=== PATIENT | male | born 1950 | race Caucasian/White ===

== ENCOUNTER 2018-06-22 12:13 | Inpatient (IN) | payer OTHER, MEDICARE ==
--- OUTSIDE RECORDS SUMMARY | 2018-06-22 12:16 | XMS REPORT | Clinical Summary ---
:1950 Author Organization [facility] Address [address] [place] [address] Care Team Providers Name Role Phone Asked, No Pcp Primary Care Provider Unavailable Allergies Active Allergy Reactions Severity Noted Date Comments Ibuprofen Anaphylaxis High 01/18/2018 Current Medications Prescription Sig. Disp. Refills Start Date End Date Status allopurinol (ZYLOPRIM) Take 300 mg by Active 300 MG tablet mouth daily. amLODIPine (NORVASC) 5 mg Take 5 mg by Active tablet mouth daily. glimepiride (AMARYL) 4 MG Take 4 mg by Active tablet mouth 2 (two) times a day. hydroCHLOROthiazide Take 25 mg by Active (HYDRODIURIL) 25 MG mouth daily. tablet losartan (COZAAR) 100 MG Take 100 mg by Active tablet mouth daily. metFORMIN (GLUCOPHAGE) Take 1,000 mg Active 1,000 mg tablet by mouth 2 (two) times a day with meals. metoprolol tartrate Take 100 mg by Active (LOPRESSOR) 100 mg tablet mouth 2 (two) times a day. rivaroxaban (XARELTO) 20 Take 20 mg by Active mg tablet mouth daily. meloxicam (MOBIC) 15 mg Take 15 mg by Active tablet mouth daily. Prn only traMADol (ULTRAM) 50 mg Take 50 mg by Active tablet mouth every 6 (six) hours as needed for moderate pain. omega-3/dha/epa/fish oil Take 4 Active (FISH OIL HIGH POTENCY capsules by ORAL) mouth daily. cholecalciferol, vitamin Take 5,000 Active D3, (VITAMIN D3) 1,000 Units by mouth unit tablet daily. rosuvastatin (CRESTOR) 10 Take 10 mg by Active MG tablet mouth daily. clopidogrel (PLAVIX) 75 Take 75 mg by Active mg tablet mouth daily. metoprolol succinate XL Take 100 mg by Discontinued (TOPROL-XL) 100 mg 24 hr mouth 2 (two) 8 tablet times a day. Active Problems Problem Noted Date Abnormal cardiovascular stress test 01/18/2018 Encounters Date Type Specialty Care Team Description 01/18/2018 - Hospital Encounter Cardiology Christiano, Abnormal cardiovascular stress test; 01/19/2018 Maria Dolores Coronary artery disease, angina presence unspecified, unspecified vessel or lesion type, unspecified whether cocopah or transplanted heart MD Sabas 01/18/2018 Procedure Pass Procedural Cardiology 01/18/2018 Surgery Procedural Duchman, Cv left heart cath w lv Cardiology Maria Dolores gram cors [[id number] MD Sabas (CPT)] 12/21/2017 Hospital Encounter Procedural Duchman, Abnormal nuclear stress test; Cardiology Maria Dolores Nonspecific abnormal electrocardiogram (ECG) (EKG); MD Sabas Palpitations 12/19/2017 Transcribe Orders Procedural Duchman, Abnormal nuclear stress test (Primary Dx); Cardiology Maria Dolores Nonspecific abnormal electrocardiogram (ECG) (EKG); MD Sabas Palpitations after 06/21/2017 Social History Tobacco Use Types Packs/Day Years Used Date Former Smoker Smokeless Tobacco: Never Used Alcohol Use Drinks/Week oz/Week Comments Yes Sex Assigned at Date Recorded Not on file Last Filed Vital Signs Vital Sign Reading Time Taken Blood Pressure 157/87 01/19/2018 7:49 AM CDT Pulse 78 01/19/2018 7:49 AM CDT Temperature 36.6 C (97.8 F) 01/19/2018 7:49 AM CDT Respiratory Rate 20 01/19/2018 7:49 AM CDT Oxygen Saturation 97% 01/19/2018 7:49 AM CDT Inhaled Oxygen Concentration - - Weight 134 kg (296 lb 8 oz) 01/18/2018 12:06 PM CDT Height 185.4 cm (6' 1") 01/18/2018 12:06 PM CDT Body Mass Index 39.12 01/18/2018 12:06 PM CDT Plan of Treatment Health Maintenance Due Date Last Done Comments COLON CANCER SCREENING 1998 SHINGRIX VACCINE (#1) 1998 ZOSTER VACCINE 2008 PNEUMOCOCCAL POLYSACCHARIDE VACCINE AGE 65 AND OVER 2013 PNEUMOCOCCAL-13 2013 INFLUENZA VACCINE 03/20/2018 Implants Implanted Type Area Upholstery Cleaner Device Expiration Model / Identifier Date Serial / Lot Stent Catheter Synergy (Otw) 3.00mm X 38mm - [id number] Coronary N/A: [facility] [id number] / Implanted: 01/18/2018 (Quantity not on file) Stents N/A INTERVENTIONAL / CARDIOLOGY Stent Catheter Synergy (Otw) 2.75mm X 16mm - [id number] Coronary N/A: [facility] [id number] / Implanted: 01/18/2018 (Quantity not on file) Stents N/A INTERVENTIONAL / CARDIOLOGY Stent Catheter Synergy (Otw) 3.00mm X 24mm - [id number] Coronary N/A: [facility] [id number] / Implanted: 01/18/2018 (Quantity not on file) Stents N/A INTERVENTIONAL / CARDIOLOGY System Clsr Sut Meditd 6fr Perclose Proglide - [id number] Surgical N/A: CABRAL VASCULAR 10/18/2019 [id number] / Implanted: 01/18/2018 (Quantity not on file) Implants; N/A DEVICES / Expanders; [id number] Extenders; Surgical Wires Explanted Type Area Upholstery Cleaner Device Expiration Model / Identifier Date Serial / Lot Stent Catheter Synergy (Otw) 3.00mm X 32mm - [id number] Coronary N/A: N/A [facility] [id number] / Explanted: 01/18/2018 (Quantity not on file) Stents INTERVENTIONAL / CARDIOLOGY Procedures Procedure Name Priority Date/Time Associated Diagnosis Comments POC GLUCOSE Routine 01/19/2018 7:46 Results for this AM CDT procedure are in the results section. ECG PRE/POST OP Routine 01/19/2018 6:47 Results for this AM CDT procedure are in the results section. ZZESTIMATED GFR Routine 01/19/2018 5:00 Results for this AM CDT procedure are in the results section. LIPID PANEL Routine 01/19/2018 5:00 Results for this AM CDT procedure are in the results section. HC COMPLETE BLD Routine 01/19/2018 5:00 Results for this COUNT W/AUTO DIFF AM CDT procedure are in the results section. BASIC METABOLIC Routine 01/19/2018 5:00 Results for this PANEL AM CDT procedure are in the results section. POC GLUCOSE Routine 01/18/2018 11:43 Results for this PM CDT procedure are in the results section. POC GLUCOSE Routine 01/18/2018 6:37 Results for this PM CDT procedure are in the results section. ECG 12-LEAD STAT 01/18/2018 4:58 Results for this PM CDT procedure are in the results section. POC GLUCOSE Routine 01/18/2018 4:34 Results for this PM CDT procedure are in the results section. CV PCI PERCUTANEOUS Routine 01/18/2018 4:03 Abnormal cardiovascular Results for this CARDIAC ANGIOPLASTY PM CDT stress test procedure are in Coronary artery disease, the results angina presence section. unspecified, unspecified vessel or lesion type, unspecified whether cocopah or transplanted heart CV LEFT HEART CATH Routine 01/18/2018 4:03 Abnormal cardiovascular Results for this LV GRAM WITH CORS PM CDT stress test procedure are in Coronary artery disease, the results angina presence section. unspecified, unspecified vessel or lesion type, unspecified whether cocopah or transplanted heart ACTIVATED CLOTTING Routine 01/18/2018 2:14 Results for this TIME PM CDT procedure are in the results section. POC GLUCOSE Routine 01/18/2018 1:31 Results for this PM CDT procedure are in the results section. POC GLUCOSE Routine 01/18/2018 12:14 Results for this PM CDT procedure are in the results section. ECG 12-LEAD STAT 01/18/2018 12:01 Results for this PM CDT procedure are in the results section. CTA CORONARY Routine 12/21/2017 9:54 Abnormal nuclear stress Results for this ARTERIES W CONTRAST AM CDT test procedure are in Nonspecific abnormal the results electrocardiogram (ECG) section. (EKG) Palpitations after 06/21/2017 Results POC glucose (01/19/2018 7:46 AM)Only the most recent of6 resultswithin the time period is included. POC glucose 335 (H) 65 - 99 mg/dL [facility] DEPARTMENT OF PATHOLOGY AND Comment: GENOMIC MEDICINE [facility] Notified RN Meter ID: [id number] Mission Support Specialist: Johnson Nova Performing Organization Address City/State/Zipcode Phone Number [facility] DEPARTMENT OF PATHOLOGY AND [address] [place] [address] [employer] MEDIC[facility] ECG Pre/Post Op (in AM) (01/19/2018 6:47 AM) Ventricular rate 81 [facility] Atrial rate 357 [facility] QRSD interval 100 [facility] QT interval 346 [facility] QTC interval 401 [facility] QRS axis 1 12 [facility] T wave axis 63 [facility] EKG impression Atrial fibrillation-Cannot rule out Anterior infarct , age undetermined-Abnormal ECG-In automated comparison with ECG of 18-JAN-2018 16:58, -T wave inversion now evident in Anterolateral leads- [facility] 10:14:54 PM Performing Organization Address City/[facility] Phone Number [facility] [address] [place] [address] Estimated GFR (01/19/2018 5:00 AM) GFR Non Af Amer 74 mL/min/1.73 m2 [facility] DEPARTMENT OF PATHOLOGY AND GENOMIC MEDICINE GFR Af Amer 90 mL/min/1.73 m2 [facility] DEPARTMENT OF Comment: PATHOLOGY AND GENOMIC Chronic kidney disease: <60 mL/min/1.73m2 MEDICINE Kidney failure: <15 mL/min/1.73m2 The estimated GFR is calculated from the IDMS-traceable Modification of Diet in Renal Disease Equation. The accuracy of the calculation is poor when the creatinine is normal. Calculated values >90 mL/min/1.73m2 are not reported. This equation has not been validated in children (<18 years), women, the elderly (>70 years), or ethnic groups other than Caucasians and Americans. Specimen Plasma specimen Performing Organization Address City/[facility] Phone Number [facility] DEPARTMENT OF PATHOLOGY AND [address] [place] [address] [employer] [facility] CBC with platelet and differential (01/19/2018 5:00 AM) WBC 13.16 (H) 4.50 - 11.00 k/uL [facility] DEPARTMENT OF PATHOLOGY AND GENOMIC MEDICINE RBC 4.71 4.40 - 6.00 m/uL [facility] DE[facility] OF PATHOLOGY AND GENOMIC MEDICINE HGB 14.8 14.0 - 18.0 g/dL [facility] DEPARTMENT OF PATHOLOGY AND GENOMIC MEDICINE HCT 41.9 41.0 - 51.0 % [facility] OF PATHOLOGY AND GENOMIC MEDICINE MCV 89.0 82.0 - 100.0 fL [facility] DEPARTMENT OF PATHOLOGY AND GENOMIC MEDICINE MCH 31.4 27.0 - 34.0 pg [facility] DEPARTMENT OF PATHOLOGY AND GENOMIC MEDICINE MCHC 35.3 31.0 - 37.0 g/dL [facility] DEPARTMENT OF PATHOLOGY AND GENOMIC MEDICINE RDW - SD 43.1 37.0 - 55.0 fL [facility] DEPART[facility] OF PATHOLOGY AND GENOMIC MEDICINE MPV 11.0 8.8 - 13.2 fL [facility] OF PATHOLOGY AND GENOMIC MEDICINE Platelet count 151 150 - 400 k/uL [facility] DEPARTMENT OF PATHOLOGY AND GENOMIC MEDICINE Nucleated RBC 0.00 /100 WBC [facility] DEPARTMENT OF PATHOLOGY AND GENOMIC MEDICINE Neutrophils 71.6 (H) 39.0 - 69.0 % [facility] DEPARTMENT OF PATHOLOGY AND GENOMIC MEDICINE Lymphocytes 20.0 (L) 25.0 - 45.0 % [facility] DEPARTMENT OF PATHOLOGY AND GENOMIC MEDICINE Monocytes 6.3 0.0 - 10.0 % [facility] DEPARTMENT OF PATHOLOGY AND GENOMIC MEDICINE Eosinophils 0.9 0.0 - 5.0 % [facility] DEPARTMENT OF PATHOLOGY AND GENOMIC MEDICINE Basophils 0.7 0.0 - 1.0 % [facility] DEPARTMENT OF PATHOLOGY AND GENOMIC MEDICINE Immature granulocytes 0.5Comment: 0.0 - 1.0 % [facility] DEPARTMENT OF "Immature PATHOLOGY AND GENOMIC granulocytes" MEDICINE (promyelocytes, myelocytes, metamyelocytes) Specimen Blood Performing Organization Address City/State/Zipcode Phone Number [facility] DEPARTMENT OF PATHOLOGY AND [address] [place] [phone] GENOMIC MEDICINE Lipid panel (01/19/2018 5:00 AM) Cholesterol 72 <200 mg/dL [facility] DEPARTMENT OF PATHOLOGY AND GENOMIC MEDICINE Triglycerides 135 <150 mg/dL [facility] DEPARTMENT OF PATHOLOGY AND GENOMIC MEDICINE HDL cholesterol 29 (L) >40 mg/dL [facility] DEPARTMENT OF PATHOLOGY AND GENOMIC MEDICINE LDL cholesterol 22Comment: Result <100 mg/dL [facility] DEPART[facility] obtained by direct LDL PATHOLOGY AND GENOMIC measurement MEDICINE Lipid panel interpretation SeeBelow [facility] DEPARTMENT OF Comment: PATHOLOGY AND GENOMIC Total Cholesterol (mg/dL) MEDICINE <200 Desirable 869-672Swgwtioebx-orvg >=240High Triglycerides (mg/dL) <150 Normal 500-488Fljrqpacrq-gyxu 200-499High >=500Very high HDL Cholesterol (mg/dL) <40Low (male) <40Low (female) LDL Cholesterol (mg/dL) <100 Optimal 100-129Near or above optimal 672-179Ltxifnqzxl-mspz 160-189High >=190Very high Risk Catergories that modify LDL goals. Risk CatergoriesLDL goal (mg/dL) CHD and CHD risk equivalent<100 (10-year risk >20%) Multiple (2+) risk factors <130 (10-year risk=<20%) 0-1 risk factors <160 (<10-year risk) Defining levels of lipids in metabolic syndrome Triglycerides>=150 mg/dL HDL Cholesterol Men<40 mg/dL Women<40 mg/dL Non-HDL cholesterol is a second target for therapy in persons with high triglycerides (>=200 mg/dL) Specimen Plasma specimen Performing Organization Address City/[facility] Phone Number [facility] DEPARTMENT OF PATHOLOGY AND [address] [place] [address] Basic metabolic panel (01/19/2018 5:00 AM) Sodium 138 135 - 148 mEq/L [facility] DEPARTMENT OF PATHOLOGY AND GENOMIC MEDICINE Potassium 3.3 (L) 3.5 - 5.0 mEq/L [facility] DEPARTMENT OF PATHOLOGY AND GENOMIC MEDICINE Chloride 95 (L) 98 - 112 mEq/L [facility] DEPARTMENT OF PATHOLOGY AND GENOMIC MEDICINE CO2 26 24 - 31 mEq/L [facility] DEPARTMENT OF PATHOLOGY AND GENOMIC MEDICINE Anion gap 17@ANIO (H) 7 - 15 mEq/L [facility] DEPARTMENT OF PATHOLOGY AND GENOMIC MEDICINE BUN 21 8 - 23 mg/dL [facility] DEPARTMENT OF PATHOLOGY AND GENOMIC MEDICINE Creatinine 1.0 0.7 - 1.2 mg/dL [facility] DEPARTMENT OF PATHOLOGY AND GENOMIC MEDICINE Glucose 305 (H) 65 - 99 mg/dL [facility] DEPARTMENT OF PATHOLOGY AND GENOMIC MEDICINE Calcium 9.1 8.8 - 10.2 mg/dL [facility] DEPARTMENT OF PATHOLOGY AND GENOMIC MEDICINE Specimen Plasma specimen Performing Organization Address [facility] Phone Number [facility] DEPARTMENT OF PATHOLOGY AND [address] [place], [place] [phone] [facility] ECG 12 lead (01/18/2018 4:58 PM)Only the most recent of2 resultswithin the time period is included. Ventricular rate 60 [facility] Atrial rate 468 [facility] QRSD interval 102 [facility] QT interval 408 [facility] QTC interval 408 [facility] QRS axis 1 18 [facility] T wave axis 25 [facility] EKG impression Atrial fibrillation-ST elevation, consider early repolarization , pericarditis, or injury-Abnormal ECG-In automated comparison with ECG of Jan-2018 12:01,-ST elevation has replaced ST depression in An [facility] terior leads- Performing Organization Address [facility]/Zipcode Phone Number [facility] [address] [place] [address] Cv cath lab radiology technician procedure (01/18/2018 4:03 PM) Narrative Performed At PCI of mid LAD HIP HOP DANCER with overlapping 3.0 x 38mm, 3.0 x 24mm, 2.75 x 16 mm Vignani MARY stents (proximal to distal) Performing Organization Address [facility] Phone Number [facility] [address] [place] [id number] Activated clotting time (01/18/2018 2:14 PM) Activated clotting time 639 (H) 96 - 152 sec [facility] DEPARTMENT OF Comment: PATHOLOGY AND GENOMIC Meter ID: [id number] MEDICINE Mission Support Specialist: Maximus Saavedra Performing Organization Address [facility] Phone Number [facility] DEPARTMENT OF PATHOLOGY AND [address] [place] [address] GENOMIC MEDICINE Cv cta coronary arteries w contrast (12/21/2017 9:54 AM) Narrative Performed At [facility] Nuclear Cardiology and Cardiac CT [address] [place] [address] CTA Coronary Arteries Report Pat.Name:FAMILIA MATHEWS Pat.ID:[id number] .Date: 12/21/2017Refer.MD:MARIA DOLORES OBREGON MD Exam Time: 9:24:00 AMStudy Type:CTA Coronary Arteries Height:72inWeight: 292lb BSA: 2.5 s0QWEWcl:1950,67Y Sex: MALEBP:163/83 HR:70 bpm Nuclear Tech:Arpan Briceno, RT(NM)(CT), [facility] Pat. Stat.:Outpatient CPT - 4: CCTA w Thoracic Aorta (NonCongenital) [id number] Nuclear Event ID:[id number] Order ID:[id number] Reason for Study:Abnormal EKG*, Abnormal stress test Procedures:CTA Coronary Arteries SUMMARY: Technique: IV contrast was administered and sequential 0.[address] cuts were obtained through the chest using the Siemens Somatom Force CT scanner. Post-processing and 3D reconstruction were done using the [employer] workstation. Interactive image viewing and volumetric display and analysis were also performed. CTA RESULTS Left Main: A normal sized 4.5 artery which arises normally from the left sinus of Valsalva and divides into the left anterior descending and circumflex coronary arteries. No significant atherosclerotic plaque is present. Left anterior descending (LAD): A normal sized 4.0mm artery which wraps around the apex and gives off three diagonal branches. Severe predominantly calcified atherosclerotic plaque is present in the proximal and mid segments with subtotal vs. total occlusion atmid segment The first diagonal is a 1.0 mm artery which has mild calcified and non-calcified atherosclerotic plaque present but with no significant stenosis. The second diagonal is a 1.5 mm artery which has mild calcified and non-calcified atherosclerotic plaque present with mild (25-49%) stenosis. The third diagonal is a 1.5 mm artery which has mild calcified and non-calcified atherosclerotic plaque present with approximately 50% stenosis. Left circumflex: A normal sized 3.5 mm non-dominant artery which arises normally from the left main and gives off one major obtuse marginal artery before terminating in the AV groove. Moderate predominantly calcified atherosclerotic plaque is present in the proximal and mid segments with with mild (25-49%) stenosis in the proximal segment. The first obtuse marginal is a 2.0 mm artery which has mild calcified and non-calcified atherosclerotic plaque present but no significant stenosis. Right coronary artery: A normal sized 4.0 mm dominant artery which arises normally from the right sinus of Valsalva and gives off several right ventricular branches, the posterior descending artery and the posterolateral artery. Severe predominantly calcified atherosclerotic plaque is present in the proximal and mid segments with mild (25-49 %) stenosis in the proximal segment. The posterior descending is a 2.0 mm artery which has mild calcified atherosclerotic plaque present but no significant stenosis. The posterolateral is a 2.0 mm artery which has no significant atherosclerotic plaquepresent. Ramus: A very small mm artery which has mild calcified atherosclerotic plaque present but with no significant stenosis. Stents: None. Bypass Grafts: None. Pulmonary Arteries: Normal pulmonary artery sizes with no proximal thrombus identified. Left Atrial and Pulmonary Vein Dimensions: Left atrial size (A-P diameter) 5.1 cm. Normal PV anatomy There is no evidence of the left atrial appendage clot. Left Ventricular Valve Morphology/Function: Aortic valve is tri-leaflet. Thoracic Aortic Dimensions: No aortic aneurysm or dissection is seen. Aortic root3.7 cm. Sinotubular junction 3.1 cm. Mid ascending aorta 3.7 cm. Descending thoracic aorta 2.9 cm. Pericardium: No pericardial effusion or pericardial thickening. Non-Cardiac Findings: Small hiatal hernia. CONCLUSION CT coronary angiography shows moderate stenosis of the mid right cononary artery (50%),mid-LAD total to subtotal occlusion with collaterals from PDA and proximal LAD Normal PV anatomy. There is no evidence of the left atrial appendage clot. STUDY QUALITY The study quality is good. COMMENTS None. The above report was based on a dedicated Cardiovascular CTA Protocol and interpreted by a Grinder Set Up Operator External.Should a more comprehensive assessment of non-cardiovascular findings be desired, please consult a radiologist.These images are available in the [facility] [employer] PACS system. Signed 12/24/2017 08:28 AM Michaela Houser MD Procedure Note Interface, Radiology Results In - 12/24/2017 8:29 AM CDT Nuclear Cardiology and Cardiac CT [address] [place] [address] CTA Coronary Arteries Report Pat.Name: FAMILIA MATHEWS Pat.ID: [id number] .Date: 12/21/2017 Refer.MD: MARIA DOLORES OBREGON MD Exam Time: 9:24:00 AM Study Type:CTA Coronary Arteries Height: 72in Weight: 292lb BSA: 2.5 m2 Age: 1 1950,67Y Sex: MALE BP: 163/83 HR: 70 bpm Nuclear Tech:Arpan Briceno RT(NM)(CT), [facility] Pat. Stat.:Outpatient CPT - 4: CCTA w Thoracic Aorta (NonCongenital) [id number] Nuclear Event ID:[id number] Order ID: [id number] Reason for Study:Abnormal EKG*, Abnormal stress test Procedures:CTA Coronary Arteries SUMMARY: Technique: IV contrast was administered and sequential 0.[address] cuts were obtained through the chest using the Siemens Somatom Force CT scanner. Post-processing and 3D reconstruction were done using the [employer] workstation. Interactive image viewing and volumetric display and analysis were also performed. CTA RESULTS Left Main: A normal sized 4.5 artery which arises normally from the left sinus of Valsalva and divides into the left anterior descending and circumflex coronary arteries. No significant atherosclerotic plaque is present. Left anterior descending (LAD): A normal sized 4.0mm artery which wraps around the apex and gives off three diagonal branches. Severe predominantly calcified atherosclerotic plaque is present in the proximal and mid segments with subtotal vs. total occlusion at mid segment The first diagonal is a 1.0 mm artery which has mild calcified and non-calcified atherosclerotic plaque present but with no significant stenosis. The second diagonal is a 1.5 mm artery which has mild calcified and non-calcified atherosclerotic plaque present with mild (25-49%) stenosis. The third diagonal is a 1.5 mm artery which has mild calcified and non-calcified atherosclerotic plaque present with approximately 50% stenosis. Left circumflex: A normal sized 3.5 mm non-dominant artery which arises normally from the left main and gives off one major obtuse marginal artery before terminating in the AV groove. Moderate predominantly calcified atherosclerotic plaque is present in the proximal and mid segments with with mild (25-49%) stenosis in the proximal segment. The first obtuse marginal is a 2.0 mm artery which has mild calcified and non-calcified atherosclerotic plaque present but no significant stenosis. Right coronary artery: A normal sized 4.0 mm dominant artery which arises normally from the right sinus of Valsalva and gives off several right ventricular branches, the posterior descending artery and the posterolateral artery. Severe predominantly calcified atherosclerotic plaque is present in the proximal and mid segments with mild (25-49 %) stenosis in the proximal segment. The posterior descending is a 2.0 mm artery which has mild calcified atherosclerotic plaque present but no significant stenosis. The posterolateral is a 2.0 mm artery which has no significant atherosclerotic plaque present. Ramus: A very small mm artery which has mild calcified atherosclerotic plaque present but with no significant stenosis. Stents: None. Bypass Grafts: None. Pulmonary Arteries: Normal pulmonary artery sizes with no proximal thrombus identified. Left Atrial and Pulmonary Vein Dimensions: Left atrial size (A-P diameter) 5.1 cm. Normal PV anatomy There is no evidence of the left atrial appendage clot. Left Ventricular Valve Morphology/Function: Aortic valve is tri-leaflet. Thoracic Aortic Dimensions: No aortic aneurysm or dissection is seen. Aortic root 3.7 cm. Sinotubular junction 3.1 cm. Mid ascending aorta 3.7 cm. Descending thoracic aorta 2.9 cm. Pericardium: No pericardial effusion or pericardial thickening. Non-Cardiac Findings: Small hiatal hernia. CONCLUSION CT coronary angiography shows moderate stenosis of the mid right cononary artery (50%), mid-LAD total to subtotal occlusion with collaterals from PDA and proximal LAD Normal PV anatomy. There is no evidence of the left atrial appendage clot. STUDY QUALITY The study quality is good. COMMENTS None. The above report was based on a dedicated Cardiovascular CTA Protocol and interpreted by a Grinder Set Up Operator External. Should a more comprehensive assessment of non-cardiovascular findings be desired, please consult a radiologist. These images are available in the [facility] [employer] PACS system. Signed 12/24/2017 08:28 AM Michaela Houser MD Performing Organization Address City/State/Zipcode Phone Number [facility] [id number] [place] [address] after 06/21/2017 Insurance Payer Benefit Plan / Group Subscriber ID Type Phone Address MEDICARE MEDICARE PART A AND B xxxxxxxxxx Medicare [place], [place] AARP AARP SUPPLEMENT xxxxxxxxx-xx Commercial
[2018-06-22 13:29] LABS: Absolute Monocytes 0.8 K/uL (0.1-1.3); Absolute Neutrophil 10.3 K/uL (1.8-8.0); Basophils % 0.9 % (0-1.3); Eosinophils % 1.3 % (0-4.4); Lymphocytes % 20.6 % (15.3-44.8); MCH 30.8 pg (27.0-35.0); MCV 90.1 fL (80-100); Monocytes % 5.8 % (3.3-12.3); RBC Red Blood Cell Count 5.22 M/uL (4.33-5.43)
[2018-06-22] MEDS ORDERED: ACETAMINOPHEN 500 MG TAB PO PRN (13:42)
[2018-06-22] MEDS ORDERED: ONDANSETRON 4 MG/2 ML VIAL IV PRN (13:42)
[2018-06-22] MEDS ORDERED: MORPHINE 4 MG/ML SYR IV PRN (13:42)
--- NOTE | 2018-06-22 13:54 | ER ---
Nurse's Notes [facility] Name: Familia Taylor Age: 67 yrs Sex: Male : 1950 Arrival Date: 06/22/2018 Time: 12:15 Bed 15 Private MD: Alex Sullivan Diagnosis: Cellulitis of right toe;Diabetes mellitus due to underlying condition;Left great toe fracture: open Presentation: 06/22 12:20 Presenting complaint: Patient states: I have a wound to my left great toe that I la1 noticed for the first time today because it was bleeding. Transition of care: patient was not received from another setting of care. Onset of symptoms was June 22, 2018. Risk Assessment: Do you want to hurt yourself or someone else? Patient reports no desire to harm self or others. Initial Sepsis Screen: Does the patient meet any 2 criteria? No. Patient's initial sepsis screen is negative. Does the patient have a suspected source of infection? No. Patient's initial sepsis screen is negative. Care prior to arrival: None. 12:20 Method Of Arrival: Ambulatory la1 12:20 Acuity: CELESTINA 3 la1 Triage Assessment: 12:30 Bite description: bite sustained to left first toe is unknown, possible black was rb1 sustained 12-24 hours ago. by unknown, animal information: vaccination(s) is not applicable. Historical: - Allergies: 12:19 Ibuprofen; la1 - PMHx: 12:19 Diabetes - NIDDM; Hypertension; Gout; High Cholesterol; la1 - PSHx: 12:19 Heart stents; la1 - Immunization history:: Adult Immunizations up to date. - Social history:: Smoking status: Patient/guardian denies using tobacco. - Ebola Screening: : No symptoms or risks identified at this time. Screenin:30 Abuse screen: Denies threats or abuse. Nutritional screening: No deficits noted. rb1 Tuberculosis screening: No symptoms or risk factors identified. Fall Risk None identified. Assessment: 12:30 General: Appears in no apparent distress. comfortable, Behavior is calm, cooperative. rb1 Pain: Denies pain. Neuro: Level of Consciousness is awake, alert, obeys commands, Oriented to person, place, time, situation. Cardiovascular: Capillary refill < 3 seconds is brisk in bilateral fingers. Respiratory: Airway is patent Respiratory effort is even, unlabored, Respiratory pattern is regular, symmetrical. GI: No signs and/or symptoms were reported involving the gastrointestinal system. GI: No signs and/or symptoms were reported involving the gastrointestinal system. : No signs and/or symptoms were reported regarding the genitourinary system. Derm: Skin has blisters on 1 blister noted on the left great toe. Skin is Dark purple discoloration on the Left great toe. Derm: Reports Pt. thinks a black spider may have bitten him. Musculoskeletal: Swelling present in left first toe. 13:30 Reassessment: Patient appears in no apparent distress at this time. Patient and/or rb1 family updated on plan of care and expected duration. Pain level reassessed. Patient is alert, oriented x 3, equal unlabored respirations, skin warm/dry/pink. Family at bedside. Patient denies pain at this time. 14:30 Reassessment: Patient appears in no apparent distress at this time. No changes from rb1 previously documented assessment. 15:30 Reassessment: Patient appears in no apparent distress at this time. Patient and/or rb1 family updated on plan of care and expected duration. Pain level reassessed. Patient is alert, oriented x 3, equal unlabored respirations, skin warm/dry/pink. 16:29 Reassessment: Patient appears in no apparent distress at this time. No changes from rb1 previously documented assessment. Patient denies pain at this time. Vital Signs: 12:20 BP 124 / 74; Pulse 85; Resp 16; Temp 97.2; Pulse Ox 97% on R/A; la1 13:14 Weight 134.26 kg (R); Height 6 ft. 1 in. (185.42 cm) (R); rb1 14:38 BP 146 / 91; Pulse 70 MON; Resp 14 S; Pulse Ox 98% on R/A; ds4 15:00 BP 146 / 91; Pulse 70; Resp 18; Pulse Ox 98% on R/A; rb1 15:21 BP 132 / 70; Pulse 64; Pulse Ox 98% ; rb1 16:20 BP 118 / 88; Pulse 58; Resp 17; Pulse Ox 99% on R/A; rb1 13:14 Body Mass Index 39.05 (134.26 kg, 185.42 cm) rb1 ED Course: 12:15 Patient arrived in ED. as 12:15 Carlos Betancourt MD is Attending Physician. kdr 12:17 Alex Sullivan DO is Private Physician. as 12:20 Arm band placed on right wrist. la1 12:21 Triage completed. la1 12:30 Patient has correct armband on for positive identification. Bed in low position. Call rb1 light in reach. Side rails up X 1. Pulse ox on. NIBP on. Warm blanket given. 12:49 Thu Diaz, RN is Primary Nurse. rb1 13:05 First set of blood cultures drawn by me. Missed attempt(s): 20 gauge in right forearm. dh3 Bleeding controlled, band aid applied, catheter tip intact. 13:20 Initial lab(s) drawn, by me, sent to lab. Second set of blood cultures drawn. Inserted dh3 saline lock: 20 gauge in right antecubital area, using aseptic technique. Blood collected. 13:43 Foot Left 3 View XRAY In Process Unspecified. EDMS 13:52 Gricel Robbins MD is Hospitalizing Provider. kdr 16:53 Wound Culture Sent. rb1 17:03 No provider procedures requiring assistance completed. Patient admitted, IV remains in hb place. Administered Medications: 13:50 Drug: vancoMYCIN 1.5 grams Route: IVPB; Rate: calculated rate; Site: right antecubital; rb1 16:22 Follow up: Response: No adverse reaction; IV Status: Completed infusion rb1 15:17 Drug: Rocephin - (cefTRIAXone) 2 grams Route: IVPB; Infused Over: 30 mins; Site: right rb1 antecubital; 15:47 Follow up: Response: No adverse reaction; IV Status: Completed infusion rb1 Outcome: 13:53 Decision to Hospitalize by Provider. kdr 17:03 Admitted to Tele accompanied by [facility], via stretcher, room 415, Report called to leo Diaz RN 17:03 Condition: stable 17:03 Instructed on the need for admit, Demonstrated understanding of instructions. 17:07 Patient left the ED. rb1 Signatures: Dispatcher [employer] EDMS Carlos Betancourt MD MD kdr Ericka Spear Donovan ds4 Ottoniel Mccann RN RN la1 Thu Diaz, RN RN rb1 Keri Boogie RN RN Cherie Roberts 3 Corrections: (The following items were deleted from the chart) 13:25 13:20 Inserted saline lock: 20 gauge in right antecubital area, using aseptic dh3 technique. Blood collected. 3 13:25 13:20 Initial lab(s) drawn, by wi, sent to lab. First set of blood cultures drawn by [facility]
--- NOTE | 2018-06-22 13:54 | EDPHYS ---
Physician Documentation [facility] Name: Familia Taylor Age: 67 yrs Sex: Male : 1950 Arrival Date: 06/22/2018 Time: 12:15 Bed 15 Private MD: Nate [facility], [facility] ED Physician Carlos Betancourt HPI: 06/22 13:45 This 67 yrs old Male presents to ER via Ambulatory with complaints of Insect kdr Bite. 13:45 The patient presents with a bite, decreased range of motion, an injury, swelling. The kdr complaints affect the left foot. Context: The problem was sustained at home, resulted from Possible bite/sppider. Onset: The symptoms/episode began/occurred this morning. Modifying factors: The symptoms are alleviated by nothing, the symptoms are aggravated by nothing. Associated signs and symptoms: The patient has no apparent associated signs or symptoms. Severity of symptoms: At their worst the symptoms were mild, in the emergency department the symptoms are unchanged. The patient has not experienced similar symptoms in the past. The patient has not recently seen a physician. Historical: - Allergies: 12:19 Ibuprofen; la1 - PMHx: 12:19 Diabetes - NIDDM; Hypertension; Gout; High Cholesterol; la1 - PSHx: 12:19 Heart stents; la1 - Immunization history:: Adult Immunizations up to date. - Social history:: Smoking status: Patient/guardian denies using tobacco. - Ebola Screening: : No symptoms or risks identified at this time. ROS: 13:45 Constitutional: Negative for fever, chills, and weight loss, Eyes: Negative for injury, kdr pain, redness, and discharge. 13:45 MS/extremity: Positive for injury or acute deformity, decreased range of motion, ecchymosis, erythema, swelling, of the left first toe and Left first toenail. Exam: 14:01 Constitutional: This is a well developed, well nourished patient who is awake, alert, kdr and in mild distress when moved distress. Head/Face: Normocephalic, atraumatic. Eyes: Pupils equal round and reactive to light, extra-ocular motions intact. Lids and lashes normal. Conjunctiva and sclera are non-icteric and not injected. Cornea within normal limits. Periorbital areas with no swelling, redness, or edema. Neck: Trachea midline, no thyromegaly or masses palpated, and no cervical lymphadenopathy. Supple, full range of motion without nuchal rigidity, or vertebral point tenderness. No Meningismus. Chest/axilla: Normal chest wall appearance and motion. Nontender with no deformity. No lesions are appreciated. Cardiovascular: Regular rate and rhythm with a normal S1 and S2. No gallops, murmurs, or rubs. Normal PMI, no JVD. No pulse deficits. Respiratory: Lungs have equal breath sounds bilaterally, clear to auscultation and percussion. No rales, rhonchi or wheezes noted. No increased work of breathing, no retractions or nasal flaring. Abdomen/GI: Soft, non-tender, with normal bowel sounds. No distension or tympany. No guarding or rebound. No evidence of tenderness throughout. Back: No spinal tenderness. No costovertebral tenderness. Full range of motion. Skin: Warm, dry with normal turgor. Normal color with no rashes, no lesions, and no evidence of cellulitis. Vital Signs: 12:20 BP 124 / 74; Pulse 85; Resp 16; Temp 97.2; Pulse Ox 97% on R/A; la1 13:14 Weight 134.26 kg (R); Height 6 ft. 1 in. (185.42 cm) (R); rb1 14:38 BP 146 / 91; Pulse 70 MON; Resp 14 S; Pulse Ox 98% on R/A; ds4 15:00 BP 146 / 91; Pulse 70; Resp 18; Pulse Ox 98% on R/A; rb1 15:21 BP 132 / 70; Pulse 64; Pulse Ox 98% ; rb1 16:20 BP 118 / 88; Pulse 58; Resp 17; Pulse Ox 99% on R/A; rb1 13:14 Body Mass Index 39.05 (134.26 kg, 185.42 cm) rb1 MDM: 13:51 Patient medically screened. cp 14:01 Data reviewed: vital signs, nurses notes, lab test result(s), radiologic studies. kdr Counseling: I had a detailed discussion with the patient and/or guardian regarding: the historical points, exam findings, and any diagnostic results supporting the discharge/admit diagnosis, lab results, radiology results, the need for further work-up and treatment in the hospital. 06/22 12:48 Order name: CBC with Diff; Complete Time: 16:06 kdr 06/22 12:48 Order name: Chem 7; Complete Time: 16:06 kdr 06/22 12:48 Order name: Blood Culture Adult (2) kdr 06/22 13:47 Order name: Basic Metabolic Panel EDMS 06/22 13:47 Order name: Basic Metabolic Panel EDMS 06/22 13:47 Order name: Basic Metabolic Panel EDMS 06/22 12:48 Order name: Foot Left 3 View XRAY; Complete Time: 16:06 kdr 06/22 13:47 Order name: Basic Metabolic Panel EDMS 06/22 13:47 Order name: CBC with Automated Diff EDMS 06/22 13:47 Order name: CBC with Automated Diff EDMS 06/22 13:47 Order name: CBC with Automated Diff EDMS 06/22 13:47 Order name: CBC with Automated Diff EDMS 06/22 13:47 Order name: Wound Culture EDMS 06/22 16:58 Order name: RAD EDMS 06/22 13:47 Order name: CONS Pharmacy Consult EDMS 06/22 13:47 Order name: CONS Pharmacy Consult EDMS Administered Medications: 13:50 Drug: vancoMYCIN 1.5 grams Route: IVPB; Rate: calculated rate; Site: right antecubital; rb1 16:22 Follow up: Response: No adverse reaction; IV Status: Completed infusion rb1 15:17 Drug: Rocephin - (cefTRIAXone) 2 grams Route: IVPB; Infused Over: 30 mins; Site: right rb1 antecubital; 15:47 Follow up: Response: No adverse reaction; IV Status: Completed infusion rb1 Disposition: 06/22/18 13:53 Hospitalization ordered by Gricel Robbins for Inpatient Admission. Preliminary diagnosis are Cellulitis of right toe, Diabetes mellitus due to underlying condition, Left great toe fracture: open. - Bed requested for Telemetry/MedSurg (Inpatient). - Status is Inpatient Admission. rb1 - Condition is Fair. - Problem is new. - Symptoms are unchanged. UTI on Admission? No Signatures: Dispatcher [employer] [facility] Maya Duval RN Carlos Guido MD MD kdr Ottoniel Mccann RN RN la1 Regino Lopez PA PA cp Barber, Rebecca RN RN rb1 Corrections: (The following items were deleted from the chart) 15:42 13:53 Hospitalization Ordered by Gricel Robbins MD for Inpatient Admission. Preliminary dw diagnosis is Cellulitis of right toe; Diabetes mellitus due to underlying condition. Bed requested for Telemetry/MedSurg (Inpatient). Status is Inpatient Admission. Condition is Fair. Problem is new. Symptoms are unchanged. UTI on Admission? No. kdr 16:10 15:42 06/22/2018 13:53 Hospitalization Ordered by Gricel Robbins MD for Inpatient kdr Admission. Preliminary diagnosis is Cellulitis of right toe; Diabetes mellitus due to underlying condition. Bed requested for Telemetry/MedSurg (Inpatient). Status is Inpatient Admission. Condition is Fair. Problem is new. Symptoms are unchanged. UTI on Admission? No. dw 17:07 16:10 06/22/2018 13:53 Hospitalization Ordered by Gricel Robbins MD for Inpatient rb1 Admission. Preliminary diagnosis is Cellulitis of right toe; Diabetes mellitus due to underlying condition; Left great toe fracture: open. Bed requested for Telemetry/MedSurg (Inpatient). Status is Inpatient Admission. Condition is Fair. Problem is new. Symptoms are unchanged. UTI on Admission? No. kdr
[2018-06-22] MEDS ORDERED: CEFTRIAXONE/SWI 1gm 1 GM/10 ML SYR IVP ONE (14:00)
[2018-06-22] MEDS ORDERED: VANCOMYCIN 1.5 GM in NA CHLORIDE 0.9% 500 ML IVPB SCH (14:00)
[2018-06-22] MEDS ORDERED: VANCOMYCIN 1.5 GM in NA CHLORIDE 0.9% 500 ML IV SCH (14:00)
--- NOTE | 2018-06-22 14:00 | RAD REPORT ---
EXAM DESCRIPTION: RAD - Foot Left 3 View - 06/22/2018 1:43 pm CLINICAL HISTORY: Left Foot pain status post fall FINDINGS: A mildly displaced fracture involves the distal aspect of first distal phalanx. An additio nal nondisplaced fracture involves the proximal aspect of the first distal phalanx. No dislocation is seen. Large calcaneal spurs are present
[2018-06-22] MEDS ORDERED: CEFTRIAXONE/SWI 2gm 2 GM/20 ML SYR IV ONE (15:00)
[2018-06-22] MEDS: INSULIN -REGULAR HUMAN 50 UNIT/0.5 ML ML SQ SCH ×2 (16:30→22:01)
--- NOTE | 2018-06-22 16:58 | RAD REPORT ---
EXAM DESCRIPTION: Chery Single View06/22/2018 4:44 pm CLINICAL HISTORY: cough COMPARISON: none FINDINGS: The lungs appear clear of acute infiltrate. The heart is normal size IMPRESSION: No acute abnormalities displayed
[2018-06-22] MEDS ORDERED: PIPER/TAZO/NS 3.375gm 3.375 GM/100 ML BAG IVPB SCH (17:00)
[2018-06-22] MEDS: NA CHLORIDE 0.9% 1,000 ML IV SCH (18:15)
[2018-06-22] MEDS: PIPER/TAZO/NS 3.375gm 3.375 GM/100 ML BAG IVPB SCH (18:17)
--- NOTE | 2018-06-22 18:37 | CON ---
Date of Consultation: 06/22/2018 Brief History Of Present Illness: The patient is a 67-year-old male who presents to the [facility] with concern of a wound of his great toe on his left foot. He noted that he was moving some b oxes as they were moving out of their house in [place] and noted that there was some bleeding associa jillian with the toe. He pulled the sock off and noted some bleeding in the area. He was concerned, how ever, when his and son had found 2 black spiders in the area where he had been working ear lier by moving boxes. He is concerned that perhaps he was envenomated by these spider bites, but did not feel these and he has some diabetic neuropathy making him fairly insensate to the area. He stat es that the area got red and inflamed, enlarged, and swollen, and as such he came to the hospital wit h the above-stated concern. Past Medical History: Significant for diabetes, hypertension, gout, and high cholesterol. Past Surgical History: He has had cardiac stents placed. He has had an I and D of upper back spider bite before in the past. Allergies: NO KNOWN DRUG ALLERGIES. Medication: List was reviewed. Social History: He denies smoking, alcohol, or recreational drug use. Review of Systems: A 10-point review of systems other than HPI, denies. Physical Examination: General: At the time of my examination, he is awake, alert, and oriented. Psychiatric: He is appropriate and conversive. HEENT: He is normocephalic. His sclerae are anicteric. Mucous membranes are moist. Oropharynx is clear. Chest: Normal expansion and excursion. Focused examination of the lower extremities shows a left great toe cellulitis. There is redness, sw elling, and some fluidic component to the plantar aspect of the great toe consistent with a possible infection. There is some skin sloughing to the dorsal aspect of the toe and the cellulitis extends t o the mid foot; however, the sloughing skin does not extend beyond the proximal interphalangeal joint . Laboratory Data: He had a laboratory exam, which reveals a white blood count of 14.4, hemoglobin is 16.1 over hematocrit 47.0, platelet count is 167. Neutrophils are normal at 71%. Sodium 140, potass ium 4.0, chloride 101, carbon dioxide 31, BUN 23, creatinine 1.1, glucose is 220, calcium 9.6. He snyder d an x-ray, which showed a mildly displaced fracture involving the distal aspect of the first phalanx . An additional nondisplaced fracture involving the proximal aspect of the first distal phalanx is s een. No dislocation seen. Large calcaneal spurs present. Assessment And Plan: This is a 67-year-old male who comes in with an infection and wound of the left great toe. 1.IV fluid hydration. 2.Antibiotic coverage. 3.I find that this patient has a drainable fluid collection and infected necrotic tissue, which need s to be debrided. I have explained the risks, benefits, and alternatives of debridement and possible amputation of the left great toe, including but not limited to bleeding, infection, damage to the ti ssue, need for further operation or procedures. The patient agrees to proceed as indicated. Thank you for this interesting consult. JOSE L/OPAL Voice ID: [id number] Report ID: [id number]
[2018-06-22 19:15] LABS: Protime INR 1.8
[2018-06-22] MEDS ORDERED: VANCOMYCIN 500 MG in NA CHLORIDE 0.9% 100 ML IVPB ONE (21:00)
[2018-06-22] MEDS ORDERED: VANCOMYCIN 1GM/D5W 200 ML IV SCH (21:00)
[2018-06-22] MEDS ORDERED: HOME MED 1 EA UNK (Glimepiride [Glimepiride] 4 MG) PO SCH (21:00)
--- NOTE | 2018-06-22 22:42 | HP ---
Date of Admission: 06/22/2018 Primary Care Physician: Dr. Sullivan. Chief Complaint: Leftfirst toe wound. Code Status: Full. No medical power of prosecuting attorney or living will. History Of Present Illness: The patient is a 67-year-old male with past medical history of hypertension; diabetes, non-insulin requiring; gout; hyperlipidemia; morbid obesity, who is in the process of moving from [place] to [place]. The patient was in the garage when he was bit by a spider and otherwise denies any trauma. The patient states that he has some pain, swelling , and redness of his first toe, however, initially did not seek medical attention. He used [id number] medications for treatment. The patient's pain got worse. He had some bleeding from the anterior aspect and therefore came into the ER for further evaluation. Upon arrival, his vital signs were stable. He was afebrile. His workup revealed a white count of 14,000 with left shift. His foot x-ray did show a mildly displaced fracture of the distal aspect of the first distal phalanx, additional nondisplaced fracture involving the proximal aspect of the first distal phalanx. No dislocation. He was then started on IV antibiotics and referred for admission. He did receive medications for pain. When seen in the ER, he was awake, alert, oriented x3, in some mild distress. Past Medical History: Diabetes mellitus type 2, non-insulin dependent, hypertension, gout, hyperlipidemia, obesity, coronary artery disease. Past Surgical History: Cardiac stents. Allergies: TO IBUPROFEN. Medications: List reviewed. Social History: The patient denies any tobacco use, alcohol use, or illicit drug use. The patient lives with his family. Independent in his activities of daily living. Family History: Heart disease runs pretty strongly in the family as well as diabetes. Review of Systems: An 11-point system reviewed, negative except as per HPI. Physical Examination: Vital Signs: Blood pressure 127/74, pulse 85, respirations 16, temperature 97.2 , O2 97% on room air. General: Awake, alert, oriented x3, in some mild distress, elderly male, somewhat ill appearing. HEENT: Normocephalic, atraumatic. PERRLA. EOMI. Moist mucous membranes. Oropharynx is clear. Poor dentition. Conjunctivae anicteric. Neck: Supple. No JVD. Trachea midline. CV: S1, S2. Regular rate and rhythm. Peripheral pulses present. Respiratory: Moving air well bilaterally. No wheezing or stridor. No use of accessory muscles. Gastrointestinal: Abdomen is soft, nontender, nondistended. Positive bowel sounds. Extremities: No clubbing, cyanosis. The patient does have some edema of the left foot. No calf tenderness. Neuro: Cranial nerves 2 through 12 intact grossly. No focal neurological deficit. Speech is normal. Some decreased sensation to light touch in bilateral feet. Skin: Left foot, first toe ecchymosis wound present with some active bleeding and blistering on the dorsal aspect. No tenderness to palpation. Warm to touch. Musculoskeletal: Decreased range of motion of left first toe. Pain with range of motion. Psych: Mood is okay. Affect is full. Insight and judgment are good. Laboratory Data: Sodium 140, potassium 4, chloride 101, CO2 31, BUN 23, creatinine 1.1, glucose 220, calcium 9.6. WBC 14.4, H and H 16.1/47, platelets 167, neutrophils 71%, absolute neutrophils 10.3. Foot x-ray, personally reviewed, shows mildly displaced fracture involves the distal aspect of the first distal phalanx, additional nondisplaced fracture involves the proximal aspect of the first distal phalanx. No dislocation is seen. Large calcaneal spurs are present. Assessment And Plan: A 67-year-old male with: 1. Diabetic foot wound, left foot first toe, initial encounter. The patient will need debridement. Dr. Nicholas has been consulted. We will start on IV antibiotics and follow up on cultures. We will obtain wound cultures as well secondary to spider bite. 2. Acute fracture of the distal aspect of the first distal phalanx and proximal aspect of the first distal phalanx, nondisplaced, initial encounter, traumatic. Will likely need immobilization, pain control, ice, and elevation. Ortho eval 3. Diabetes mellitus type 2, non-insulin requiring with hyperglycemia, uncontrolled. We will check hemoglobin A1c. Start on sliding scale insulin. Continue Accu-Cheks. 4. Essential hypertension, uncontrolled. We will add p.r.n. medications as needed, otherwise continue home medications. 5. Mixed hyperlipidemia. We will continue home medications as appropriate. 6. Morbid obesity, counseled. 7. Gastrointestinal and deep venous thrombosis prophylaxis addressed. No chemical anticoagulation due to surgery in a.m. We will place SCDs. Plan: Admit the patient to Med-Surg, place as inpatient. Length of stay greater than 2 midnights. SAVANNA Voice ID: [id number] MTDD
[2018-06-23] MEDS ORDERED: PIPER/TAZO/NS 3.375gm 3.375 GM/100 ML BAG ONE (01:46)
[2018-06-23] MEDS: PIPER/TAZO/NS 3.375gm 3.375 GM/100 ML BAG IVPB SCH ×3 (01:52→16:45)
[2018-06-23] MEDS: NA CHLORIDE 0.9% 1,000 ML IV SCH ×2 (03:20→16:40)
[2018-06-23 04:29] LABS: Absolute Lymphocytes (CBC) 3.1 K/uL (0.7-4.9); Absolute Monocytes 0.8 K/uL (0.1-1.3); Absolute Neutrophil 7.3 K/uL (1.8-8.0); Basophils % 1.2 % (0-1.3); Eosinophils % 1.8 % (0-4.4); Hematocrit 41.4 % (39.6-49.0); Lymphocytes % 27.2 % (15.3-44.8); MCV 89.4 fL (80-100); MPV 8.8 fL (7.6-11.3); Monocytes % 7.1 % (3.3-12.3); RBC Red Blood Cell Count 4.63 M/uL (4.33-5.43)
[2018-06-23 04:47] LABS: Potassium 3.4 mmol/L (3.5-5.1)
[2018-06-23] MEDS: INSULIN -REGULAR HUMAN 50 UNIT/0.5 ML ML SQ SCH ×4 (07:30→20:56)
[2018-06-23] MEDS: GLIMEPIRIDE 2 MG TABLET PO SCH ×2 (08:00→16:45)
[2018-06-23] MEDS ORDERED: HOME MED 1 EA UNK (Losartan Potassium [Losartan Potassium] 100 MG) PO SCH (09:00)
[2018-06-23] MEDS ORDERED: ROSUVASTATIN 10 MG TAB PO SCH ×2 (09:00→21:00)
[2018-06-23] MEDS ORDERED: NA CHLORIDE 0.9% 1,000 ML ONE (09:47)
[2018-06-23] MEDS ORDERED: PROPOFOL 200 MG/20 ML VIAL IV ONE (10:52)
[2018-06-23] MEDS ORDERED: LIDOCAINE 2% MPF 5 ML VIAL ONE (10:52)
[2018-06-23] MEDS ORDERED: FENTANYL CITR 100 MCG/2 ML ONE (10:52)
[2018-06-23] MEDS ORDERED: DEXAMETHASONE 10 MG/ML VIAL ONE (11:18)
[2018-06-23] MEDS ORDERED: KETOROLAC 30 MG/ML INJ ONE (11:18)
[2018-06-23] MEDS ORDERED: ONDANSETRON 4 MG/2 ML VIAL ONE (11:19)
--- NOTE | 2018-06-23 11:23 | P.OP ---
Preoperative diagnosis: LEFT Great Toe infection Postoperative diagnosis: LEFT Great Toe infection / hematoma Primary procedure: Incision and Drainage of LEFT Great Toe Anesthesia: GETA Estimated blood loss: <10cc Specimen: Cultures Sent Findings: Hematoma of LEFT great toe Complications: None Transferred to: Recovery Room Condition: Good
[2018-06-23] MEDS: ALLOPURINOL 300 MG TAB PO SCH (13:06)
[2018-06-23] MEDS: AMLODIPINE 5 MG TAB PO SCH (13:06)
[2018-06-23] MEDS: LOSARTAN POTASSIUM 50 MG TABLET PO SCH (13:06)
[2018-06-23] MEDS: hydroCHLOROthiazide 25 MG TAB PO SCH (13:06)
[2018-06-23] MEDS: VANCOMYCIN 2 GM in NA CHLORIDE 0.9% 500 ML IVPB SCH (15:29)
[2018-06-23] MEDS: RIVAROXABAN 20 MG TABLET PO SCH (16:49)
--- NOTE | 2018-06-23 21:32 | PN ---
Date of Progress Note: 06/23/2018 Subjective: The patient is seen and examined. Chart reviewed and case discussed with RN and Dr. Nicholas. The patient is going for debridement today. Review of Systems: Negative except as above. Medications: List reviewed. Physical Examination: Vital Signs: Temperature 97.6, heart rate 80, blood pressure 127/75, respirations 18, O2 94% on room air. General: Awake, alert, oriented x3, not in any acute distress. Elderly male, slightly ill appearing. CV: S1, S2. No murmurs. Irregularly irregular rhythm. Peripheral pulses present. Respiratory: Moving air well bilaterally. Gastrointestinal: Abdomen is soft, nontender, nondistended. Positive bowel sounds. Extremities: No clubbing, cyanosis, or edema. Neuro: Nonfocal. Skin: Left great toe hematoma and wound with some ecchymosis and bloody drainage. Tenderness to palpation. Laboratory Data: Sodium 140, potassium 3.4, chloride 106, CO2 of 28, BUN 21, creatinine 1, glucose 159, calcium 8. WBC 11.6, H and H of 14.4 and 41.1, platelets 134, neutrophils 62%. INR 1.8. Hemoglobin A1c pending. Blood cultures, no growth to date. Wound cultures, 1+ mixed skin shay. Body fluid pending. Assessment And Plan: A 67-year-old male with: 1. Diabetic foot wound, left foot, first toe, initial encounter, status post incision and drainage by Dr. Nicholas. Continue IV antibiotics. Cultures negative to date. 2. Acute fracture of the distal aspect of the first distal phalanx and proximal aspect of the first distal phalanx nondisplaced, initial encounter traumatic. We will place in immobilization with pain control, ice, and elevation. Ortho eval 3. Diabetes mellitus type 2, [id number] with hyperglycemia, uncontrolled. Hemoglobin A1c pending. Continue sliding scale insulin. Continue Accu-Cheks. 4. Essential hypertension, uncontrolled. 5. Hypokalemia. Replace and monitor. 6. Mixed hyperlipidemia. Resume home medications as appropriate. 7. Obesity, non-morbid due to excess calories. BMI 39.3. 8. Atrial fibrillation, chronic, rate controlled. The patient is on anticoagulation, currently on hold. Resume anticoagulation 24 hours post surgery. Plan: Continue IV antibiotics and IV pain medications. Follow up on cultures. I appreciate Dr. Nicholas's input. Likely discharge home in the next 48 to 72 hours depending on clinical response and culture results. /OPAL Voice ID: [id number] Report ID: [id number]
--- NOTE | 2018-06-23 21:56 | OP ---
Date of Procedure: 06/23/2018 Surgeon: Jillian Nicholas MD, Preoperative Diagnoses: Left great toe infection and fracture. Postoperative Diagnoses: Left great toe infection/hematoma and fracture. Primary Procedure: Incision and drainage of left great toe. Anesthesia: General endotracheal. Estimated Blood Loss: 10 cc. Specimen: Cultures were sent. Findings: Hematoma, left great toe on the plantar aspect. Complications: None. Disposition: Transferred to recovery room in good condition. Procedure In Detail: After informed consent was obtained, the patient was brought to the operating r oom, prepped and draped in usual sterile fashion. After adequate anesthesia was achieved, an area on the medial aspect of the plantar portion of the left great toe was incised approximately half a cent imeter, immediately encountered was a hematoma. This was evacuated completely and the excoriated ski n on the dorsal aspect near the nail bed was all sloughing and it was removed and the area was cleans ed. The cultures were sent at this time from the wound. The area was copiously irrigated multiple t imes until completely clear. Hemostasis was achieved without any additional hemostatic maneuvers and the wound was then packed with half-inch iodoform packing and a sterile dressing was placed over top and the great toe was then splinted to help support the repair of the fracture site. Patient tolera jillian the procedure well without evidence of complication and transferred to the PACU in good condition. All counts were correct at the end of the case. JOSE L/OPAL Voice ID: [id number] Report ID: [id number]
[2018-06-24] MEDS: PIPER/TAZO/NS 3.375gm 3.375 GM/100 ML BAG IVPB SCH ×3 (00:51→16:53)
[2018-06-24] MEDS: NA CHLORIDE 0.9% 1,000 ML IV SCH (05:17)
[2018-06-24 06:21] LABS: Absolute Lymphocytes (CBC) 1.3 K/uL (0.7-4.9); Absolute Monocytes 0.7 K/uL (0.1-1.3); Absolute Neutrophil 12.6 K/uL (1.8-8.0); Basophils % 0.1 % (0-1.3); Hematocrit 43.5 % (39.6-49.0); Lymphocytes % 9.2 % (15.3-44.8); MCH 31.2 pg (27.0-35.0); MCV 90.3 fL (80-100); MPV 9.4 fL (7.6-11.3); Monocytes % 4.5 % (3.3-12.3); RBC Red Blood Cell Count 4.82 M/uL (4.33-5.43)
[2018-06-24 06:38] LABS: Potassium 3.6 mmol/L (3.5-5.1)
[2018-06-24] MEDS: INSULIN -REGULAR HUMAN 50 UNIT/0.5 ML ML SQ SCH ×3 (07:30→16:30)
[2018-06-24] MEDS: VANCOMYCIN 2 GM in NA CHLORIDE 0.9% 500 ML IVPB SCH (08:55)
[2018-06-24] MEDS: ALLOPURINOL 300 MG TAB PO SCH (08:56)
[2018-06-24] MEDS: hydroCHLOROthiazide 25 MG TAB PO SCH (08:56)
[2018-06-24] MEDS: GLIMEPIRIDE 2 MG TABLET PO SCH ×2 (08:56→16:53)
[2018-06-24] MEDS: AMLODIPINE 5 MG TAB PO SCH (08:58)
[2018-06-24] MEDS: LOSARTAN POTASSIUM 50 MG TABLET PO SCH (08:58)
[2018-06-24] MEDS ORDERED: CLOPIDOGREL 75 MG TABLET PO SCH (09:00)
--- NOTE | 2018-06-24 09:27 | P.PN ---
Subjective Date of Service: 06/24/18 Subjective: Improving (Patient feeling well, no pain, no issues) Physical Examination - Vital Signs Temperature: 97.9 F Blood Pressure: 127/89 Pulse: 93 Respirations: 18 Pulse Ox (%): 97 - Physical Exam General: Alert, Oriented x3 HEENT: Mucous membr. moist/pink Integumentary: Other (Great toe wound is stable packed and dressed well) - Studies Microbiology Data (last 24 hrs): 06/22/18 13:05 Blood - Blood Anaerobic Blood Culture - Final Assessment And Plan - Current Problems (Diagnosis) (1) Toe fracture Current Visit: Yes Status: Acute Plan: Patient doing well continue dressing changes with packing at home with splint in place. remove packing daily, irrigate, repack and wrap. - follow up in 2 weeks Qualifiers: Encounter type: initial encounter Toe: great toe Fracture type: closed Fracture alignment: displaced Laterality: left
[2018-06-24] MEDS: RIVAROXABAN 20 MG TABLET PO SCH (16:53)
--- NOTE | 2018-06-25 02:04 | CON ---
Date of Consultation: 06/24/2018 Additional Attending Physician: Dr. Robbins. Additional Consulting Physician: Dr. Oscar Cho. Reason For Consultation: Left great toe fracture. History Of Present Illness: Mr. Taylor is a 67-year-old male with history of hypertension, diabetes , gout, hyperlipidemia, and morbid obesity who presented to the ER with bloody drainage from his grea t toe and cellulitis. X-rays in the emergency room demonstrated a minimally displaced fracture of th e great toe distal phalanx of his left foot. He was also noted to have some erythema and drainage fr om his great toe. General Surgery was consulted and the patient underwent irrigation and debridement of his left great toe. He currently has a dressing over his great toe. I was consulted for fractur e management of his great toe distal phalanx fracture. Denies any other musculoskeletal complaints a t this time. Review of Systems: As above, otherwise negative. Past Medical History: Includes diabetes, hypertension, gout, hyperlipidemia, obesity, coronary arter y disease. Past Surgical History: Cardiac stents and left great toe I and D. Allergies: TO IBUPROFEN. Medications: Per medication reconciliation. Social History: Denies tobacco, alcohol, or drug use. Lives with his family. He is currently movin [employer] from [place] to [place]. Family History: Reviewed and noncontributory. Physical Examination: General: No apparent distress. HEENT: Normocephalic, atraumatic. Neck: Supple. Cardiovascular: Brisk cap refill to all digits. Chest: Nonlabored breathing. Abdomen: Nondistended. Psychiatric: Responds to exam. Musculoskeletal: Bandage over the left great toe. Tenderness to palpation of the great toe. No leslie thema noted of the left foot. X-rays: X-rays of the left foot demonstrate a minimally displaced left great toe distal phalanx frac ture with acceptable alignment. Assessment And Plan: Mr. Taylor is a 67-year-old male with a left great toe distal phalanx fracture . The patient may be weightbearing as tolerated on his left lower extremity and using the Cam boot. He will continue with wound care per Dr. Nicholas. He may follow up in my clinic in 2 weeks for x-ra ys of his left foot. CV/MODL Voice ID: [id number] Report ID: [id number]
== END 2018-06-24 17:17 | disposition home health service (06) | DRG 918 ==
LOC: ER 12:13 → ERHOLD 14:22 → 4TH 16:53
PROVIDERS: ADMIT Family Medicine; ATTEND Family Medicine
PROC: 0H9NXZX Drainage of Left Foot Skin, External Approach, Diagnostic (ICD-10-PCS; principal; 2018-06-23 10:30)
DX: T63.301A Toxic effect of unspecified spider venom, accidental (unintentional), initial encounter (principal); M79.89 Other specified soft tissue disorders; Y92.015 Private garage of single-family (private) house as the place of occurrence of the external cause; I10 Essential (primary) hypertension; E66.01 Morbid (severe) obesity due to excess calories; M10.9 Gout, unspecified; E11.65 Type 2 diabetes mellitus with hyperglycemia; Z79.84 Long term (current) use of oral hypoglycemic drugs; E78.2 Mixed hyperlipidemia; M77.32 Calcaneal spur, left foot; Z68.39 Body mass index [BMI] 39.0-39.9, adult; I48.2 Chronic atrial fibrillation; Z79.01 Long term (current) use of anticoagulants; L03.032 Cellulitis of left toe; S92.422A Displaced fracture of distal phalanx of left great toe, initial encounter for closed fracture; X58.XXXA Exposure to other specified factors, initial encounter; Y93.9 Activity, unspecified
CPT/HCPCS: 36415; 71045; 80048; 82962; 83036; 85025; 85610; 87040; 87070; 87075; 87077; 87186; 87205; 94760; 96365; 96366; 99285; J0696; J1100; J2405; J2543; J2704; J3010; J7030